=== PATIENT | female | born 1935 | race Caucasian/White ===

== ENCOUNTER → 2020-02-05 | Outpatient (CLI) | payer MEDICARE | END | disposition home or self-care (01) | LOC: OIH 13:04 | PROVIDERS: ATTEND Internal Medicine | DX: M47.815 Spondylosis without myelopathy or radiculopathy, thoracolumbar region (principal); M47.816 Spondylosis without myelopathy or radiculopathy, lumbar region; I70.0 Atherosclerosis of aorta | CPT/HCPCS: 72070; 72100 ==

== ENCOUNTER → 2020-02-12 | Outpatient (CLI) | payer MEDICARE ==
[~2020-02-12] MED LIST: IOHEXOL-350 75 ML VIAL IV ONE
== END | disposition home or self-care (01) ==
LOC: RAH 09:23 → EDUNIT# 02-15 10:00
PROVIDERS: ATTEND Internal Medicine
DX: K59.00 Constipation, unspecified (principal); M54.5 Low back pain; I70.0 Atherosclerosis of aorta; R63.4 Abnormal weight loss; Z90.710 Acquired absence of both cervix and uterus
CPT/HCPCS: 74178; Q9967

== ENCOUNTER → 2020-02-19 | Outpatient (CLI) | payer MEDICARE | END | disposition home or self-care (01) | LOC: OIH 14:09 | PROVIDERS: ATTEND Family Medicine | DX: J44.9 Chronic obstructive pulmonary disease, unspecified (principal); K59.00 Constipation, unspecified; R63.4 Abnormal weight loss ==

== ENCOUNTER → 2020-10-30 | Outpatient (CLI) | payer MEDICARE | END | disposition home or self-care (01) | LOC: RAH 09:45 | PROVIDERS: ATTEND Internal Medicine Gastroenterology | DX: K63.89 Other specified diseases of intestine (principal); N32.89 Other specified disorders of bladder; R63.4 Abnormal weight loss; M51.36 Other intervertebral disc degeneration, lumbar region; Z90.711 Acquired absence of uterus with remaining cervical stump | CPT/HCPCS: 74178; Q9967 ==